=== PATIENT | female | born 1995 | race Caucasian/White ===

== ENCOUNTER → 2017-05-05 | Outpatient (REF) | LOC: WSOH 11:12 | DX: Z02.1 Encounter for pre-employment examination (principal) ==

== ENCOUNTER → 2017-05-07 | Outpatient (REF) | LOC: WSOH 12:05 | DX: Z02.89 Encounter for other administrative examinations (principal) ==

== ENCOUNTER → 2017-05-07 | Outpatient (REF) | LOC: WSOH 10:42 | DX: Z23 Encounter for immunization (principal) ==

== ENCOUNTER → 2017-05-07 | Outpatient (REF) | LOC: WSPT 10:15 | DX: Z02.89 Encounter for other administrative examinations (principal) ==

== ENCOUNTER → 2017-05-15 | Outpatient (REF) | LOC: WSOH 15:09 | DX: Z02.89 Encounter for other administrative examinations (principal) ==

== ENCOUNTER → 2017-06-08 | Outpatient (REF) | LOC: WSOH 13:34 | DX: Z01.84 Encounter for antibody response examination (principal) ==